=== PATIENT | female | born 1975 | race Caucasian/White ===

== ENCOUNTER → 2017-03-01 | Outpatient (CLI) | payer OTHER ==
--- NOTE | 2017-03-02 08:41 | MG ---
Examination: Bilateral screening mammogram. Clinical history: Routine screening. Technique: Digital CC and MLO views of both breasts were obtained. Computer aided detection analysis was performed and used during the interpretation. Comparison: None available. Findings: The breasts are heterogeneously dense, reducing the sensitivity of mammography. There is a 1.3 cm density present in the upper outer aspect of the right breast in the posterior dep th. Additional imaging evaluation is recommended, with spot compression magnification views in the C C and MLO projections, a lateral view of the right breast and a right breast ultrasound. There is an apparent area of architectural distortion seen in the superior portion of the right parmjit st in the mid to posterior depth. Additional imaging evaluation is recommended, with a spot compress ion magnification view in the MLO projection, a lateral view of the right breast and a right breast ultrasound. No suspicious mass, area of architectural distortion or suspicious cluster of microcalcifications is noted in the left breast. Impression: 1. Density in the right breast and an apparent area of architectural distortion in the right breast, as described above. BI-RADS category 0 (ZERO) - ASSESSMENT INCOMPLETE; ADDITIONAL IMAGING IS NEEDED. Recommend immediate recall for additional imaging evaluation, as described above. Diagnostic CAD was utilized and reviewed. * 0 (ZERO) - ASSESSMENT INCOMPLETE; ADDITIONAL IMAGING IS NEEDED. * 0C - ASSESSMENT INCOMPLETE, NEEDS ADDITIONAL IMAGING EVALUATION AND/OR PRIOR MAMMOGRAMS FOR COMPAR JORGE. * 1/1 (ONE) - NEGATIVE. * 2/II (TWO) - BENIGN FINDINGS. * 3/III (THREE) - PROBABLY BENIGN FINDING; SHORT INTERVAL FOLLOW-UP SUGGESTED. * 4/IV (FOUR) - SUSPICIOUS ABNORMALITY; BIOPSY SHOULD BE CONSIDERED. * 5/V - HIGHLY SUSPICIOUS OF MALIGNANCY; BIOPSY SHOULD BE PERFORMED. * 6/IV - KNOWN BIOPSY PROVEN MALIGNANCY-APPROPRIATE ACTION SHOULD BE TAKEN. A NEGATIVE X-RAY REPORT SHOULD NOT DELAY BIOPSY IF A DOMINANT OR CLINICALLY SUSPICIOUS MASS IS PRESENT; 4 TO 8 PERCENT OF CANCERS ARE NOT IDENTIFIED BY X-RAY. A NEGATIVE REPORT MAY REINFORCE THE CLINICAL IMPRESSION. ADENOSIS AND DENSE BREASTS MAY OBSCURE AN UNDERLYING NEOPLASM. Reported By:
== END ==
LOC: RAD 13:44
PROVIDERS: ATTEND Specialist
DX: Z12.31 Encounter for screening mammogram for malignant neoplasm of breast (principal)
CPT/HCPCS: 77067

== ENCOUNTER → 2017-03-04 | Outpatient (CLI) | payer OTHER ==
--- NOTE | 2017-03-04 16:24 | US ---
Examination: Unilateral right diagnostic mammogram and right breast ultrasound. Clinical history: Abnormal screening mammogram. Technique: Additional digital images of the right breast were obtained. Targeted right breast ultras ound was also obtained evaluating the upper outer aspect of the right breast. Comparison: 03/01/2017. Findings: The right breast is heterogeneously dense, reducing the sensitivity of mammography. A questionable area of architectural distortion in the superior portion of the right breast in the m id to posterior depth, seen on the MLO view only of the recent screening mammogram, is not persisten t on additional views and was probably due to summation artifact. There is a 1.3 cm mass present in the upper outer aspect of the right breast, which is partially obs cured by surrounding fibroglandular tissue. Targeted right breast ultrasound evaluating the upper outer aspect of the right breast reveals a sma ll circumscribed anechoic 5 mm mass at the 12 o'clock position, consistent with a benign cyst. A sma ll 6 mm intramammary lymph node is also seen at the 10 o'clock position. A 1.3 x 0.9 cm hypoechoic m ass is seen at the 9 o'clock position, correlating with the findings on the mammogram. This lesion c ould represent a benign fibroadenoma, but has a somewhat ill-defined border and an ultrasound-guided biopsy of this lesion is therefore recommended. Impression: 1. Suspicious 1.3 cm mass at the 9 o'clock position in the right breast, as described above. BI-RADS category 4/IV (FOUR) - SUSPICIOUS ABNORMALITY; BIOPSY SHOULD BE CONSIDERED. Recommend an ultrasound-guided biopsy of the mass at the 9 o'clock position in the right breast. Diagnostic CAD was utilized and reviewed. * 0 (ZERO) - ASSESSMENT INCOMPLETE; ADDITIONAL IMAGING IS NEEDED. * 0C - ASSESSMENT INCOMPLETE, NEEDS ADDITIONAL IMAGING EVALUATION AND/OR PRIOR MAMMOGRAMS FOR COMPAR JORGE. * 1/1 (ONE) - NEGATIVE. * 2/II (TWO) - BENIGN FINDINGS. * 3/III (THREE) - PROBABLY BENIGN FINDING; SHORT INTERVAL FOLLOW-UP SUGGESTED. * 4/IV (FOUR) - SUSPICIOUS ABNORMALITY; BIOPSY SHOULD BE CONSIDERED. * 5/V - HIGHLY SUSPICIOUS OF MALIGNANCY; BIOPSY SHOULD BE PERFORMED. * 6/IV - KNOWN BIOPSY PROVEN MALIGNANCY-APPROPRIATE ACTION SHOULD BE TAKEN. A NEGATIVE X-RAY REPORT SHOULD NOT DELAY BIOPSY IF A DOMINANT OR CLINICALLY SUSPICIOUS MASS IS PRESENT; 4 TO 8 PERCENT OF CANCERS ARE NOT IDENTIFIED BY X-RAY. A NEGATIVE REPORT MAY REINFORCE THE CLINICAL IMPRESSION. ADENOSIS AND DENSE BREASTS MAY OBSCURE AN UNDERLYING NEOPLASM. Reported By:
== END | disposition home or self-care (01) ==
LOC: RAD 14:18
PROVIDERS: ATTEND Specialist
DX: R92.8 Other abnormal and inconclusive findings on diagnostic imaging of breast (principal); N63 Unspecified lump in breast
CPT/HCPCS: 76642; 77065

== ENCOUNTER → 2017-03-24 | Outpatient (CLI) | payer OTHER ==
--- NOTE | 2017-03-24 18:31 | US ---
HISTORY: Patient is a 41-year-old female who presents with suspicious 1.3 cm mass 9 o'clock positio n right breast. Study: Ultrasound-guided breast biopsy Comparison: Multiple mammograms dating back to March 01, 2017 and right breast ultrasound dated March 04, 2017. Technique: Multiple grayscale images of the right breast were obtained. Findings: Again noted within the right breast is a focal lesion previously noted and amenable to ultrasound-gu ided biopsy. Multiple images demonstrating a biopsy device transversing the lesion are observed. Procedure: After the risks benefits and alternatives to the procedure were explained to the patient questions w ere answered and she agreed to proceed. Under direct ultrasound guidance the skin entry position wa s selected and marked. A time-out was taken. 1% lidocaine without epinephrine was utilized to anes thetize the skin and underlying soft tissues. Under direct ultrasound guidance the biopsy device wa s advanced to the lesion without difficulty. 6 separate 14 gauge core samples were obtained without difficulty. Under direct ultrasound guidance a clip was placed in the region of the lesion for cor relation and followup. Diagnostic mammogram: ML and CC projections of the right breast were obtained demonstrating a breast clip to be in the reg ion of ultrasound-guided biopsy. IMPRESSION: Successful ultrasound-guided breast biopsy. Reported By:
== END | disposition home or self-care (01) | DRG 601 ==
LOC: RAD 09:12
PROVIDERS: ATTEND Specialist
PROC: 0HBT3ZX Excision of Right Breast, Percutaneous Approach, Diagnostic (ICD-10-PCS; principal; 2017-03-24)
DX: R92.8 Other abnormal and inconclusive findings on diagnostic imaging of breast (principal)
CPT/HCPCS: 19083